=== PATIENT | male | born 1965 | race Caucasian/White ===

== ENCOUNTER 2022-08-10 13:04 | Emergency (ER) | payer OTHER ==
[~2022-08-10] VITALS: Ht 180.3 cm; Wt 86.0 kg
[2022-08-10 13:30] VITALS: BP 144/102
[2022-08-10] MEDS ORDERED: AMOX-117 PO ×3 (13:59→14:41)
== END 2022-08-10 14:18 | disposition home or self-care (01) ==
LOC: ER 13:05
DX: S51.852A Open bite of left forearm, initial encounter (principal); W54.0XXA Bitten by dog, initial encounter; Y93.89 Activity, other specified; Y92.89 Other specified places as the place of occurrence of the external cause; Y99.8 Other external cause status
CPT/HCPCS: 99283